=== PATIENT | male | born 1995 | race Caucasian/White ===

== ENCOUNTER 2020-07-25 13:01 | Emergency (ER) | payer BC | END 2020-07-25 15:10 | disposition home or self-care (01) | LOC: ER1 13:01 | DX: S02.40DA Maxillary fracture, left side, initial encounter for closed fracture (principal); S02.842A Fracture of lateral orbital wall, left side, initial encounter for closed fracture; S02.32XA Fracture of orbital floor, left side, initial encounter for closed fracture; R20.0 Anesthesia of skin; F17.210 Nicotine dependence, cigarettes, uncomplicated; Z98.890 Other specified postprocedural states; W50.0XXA Accidental hit or strike by another person, initial encounter | CPT/HCPCS: 70486; 99283 ==

== ENCOUNTER → 2021-03-20 | Outpatient (CLI) | payer BC | LOC: KOH-I 15:34 | DX: S92.352D Displaced fracture of fifth metatarsal bone, left foot, subsequent encounter for fracture with routine healing (principal) | CPT/HCPCS: 73630 ==